=== PATIENT | female | born 1945 | race Caucasian/White ===

== ENCOUNTER 2020-04-12 05:51 | Day surgery (SDC) | payer MEDICARE ==
[2020-04-11 13:31] LABS: BASOPHILS # (AUTO) 0.1 X10'3 (0-0.2); BASOPHILS % (AUTO) 0.9 % (0-1); EOSINOPHILS # (AUTO) 0.2 X10'3 (0-0.9); EOSINOPHILS % (AUTO) 2.2 % (0-6); HEMATOCRIT 41.6 % (35.0-45.0); HEMOGLOBIN 13.5 g/dl (12.0-16.0); LYMPHOCYTES # (AUTO) 1.4 X10'3 (1.1-4.8); MEAN CORPUSCULAR HEMOGLOBIN 28.2 PG (27.0-31.0); MEAN CORPUSCULAR HGB CONC 32.4 g/dL (33.0-36.5); MEAN PLATELET VOLUME 8.5 FL (7.4-10.4); MONOCYTES # (AUTO) 0.4 X10'3 (0-0.9); MONOCYTES % (AUTO) 4.2 % (2-12); NEUTROPHILS # (AUTO) 6.7 X10'3 (1.8-7.7); NEUTROPHILS % (AUTO) 76.7 % (42-75); PLATELET COUNT 301 X10'3 (140-440); RED BLOOD COUNT 4.78 X10'6 (4.20-5.60); RED CELL DISTRIBUTION WIDTH 14.9 % (11.5-14.5); WHITE BLOOD COUNT 8.8 X10'3 (4.5-11.0)
[2020-04-11 13:42] LABS: PARTIAL THROMBOPLASTIN TIME 31 SECONDS (22-32)
[2020-04-11 13:46] LABS: ALBUMIN 3.6 G/DL (3.4-5.0); ANION GAP 6 (8-16); BLOOD UREA NITROGEN 24 MG/DL (7-18); CALCIUM 9.4 MG/DL (8.5-10.1); CHLORIDE 106 MMOL/L (99-107); CREATININE 0.96 MG/DL (0.40-0.90); GLUCOSE 121 MG/DL (70-104); POTASSIUM 4.4 MMOL/L (3.5-5.1); SODIUM 143 MMOL/L (135-145); TOTAL CARBON DIOXIDE 30.8 MMOL/L (24-32); eGFR 57 ML/MIN
[~2020-04-12] VITALS: Ht 170.2 cm; Wt 163.7 kg
[2020-04-12] VITALS (11 sets, daily range): BP systolic 124–170; BP diastolic 53–97
[2020-04-12] MEDS ORDERED: normal saline 1,000 ML IV SCH ×2 (06:20→10:00)
[2020-04-12] MEDS ORDERED: LORazepam 0.5 MG tablet PO PRN (06:20)
[2020-04-12] MEDS ORDERED: LIDOcaine/PRILOcaine 5gm cream TP ONE (06:20)
[2020-04-12] MEDS ORDERED: diphenhydrAMINE 25mg capsule PO PRN (06:20)
[2020-04-12] MEDS ORDERED: CHOL20002 PO (06:49)
[2020-04-12] MEDS ORDERED: UBID300C PO (06:49)
[2020-04-12] MEDS ORDERED: CARV6.253 PO (06:49)
[2020-04-12] MEDS ORDERED: LISI40TA4 PO (06:49)
[2020-04-12] MEDS ORDERED: CALC-801 PO (06:49)
[2020-04-12] MEDS ORDERED: POTA99TA21 PEG (06:49)
[2020-04-12] MEDS ORDERED: SIMV10TA98 PO (06:49)
[2020-04-12] MEDS ORDERED: CRAN200C PO (06:49)
[2020-04-12] MEDS ORDERED: AMLO10TA13 PO (06:49)
[2020-04-12] MEDS ORDERED: MULT-1085 PO (06:49)
[2020-04-12] MEDS ORDERED: BETA1TAB20 PO (06:49)
[2020-04-12] MEDS ORDERED: verapamil 2.5 mg/ml inj IV ONE (07:31)
[2020-04-12] MEDS ORDERED: nitroGLYCERIN-Tridil 50MG/D5W 250 ML IV ONE (07:31)
[2020-04-12] MEDS ORDERED: fentaNYL/PF 50MCG/1 ML 2ML syringe ONE (07:32)
[2020-04-12] MEDS ORDERED: LIDOcaine 1% (10mg/ml)w/preservative injection 20ml MDV ONE (07:32)
[2020-04-12] MEDS ORDERED: iohexol 350MG/ML 100ml bottle IV ONE (07:32)
[2020-04-12] MEDS ORDERED: heparin 1,000unit/ml 10ml vial 10 ML ONE (07:32)
[2020-04-12] MEDS ORDERED: iohexol 350 MG/ML 50ML vial IV ONE (07:32)
[2020-04-12] MEDS ORDERED: midazolam 2 mg/2 ml injection ONE (07:32)
[2020-04-12] MEDS ORDERED: FLU VACC QS2020-21(6MOS UP)/PF 60 MCG/0.5 ML SYRINGE IMVAC ONE (10:00)
== END 2020-04-12 15:00 | disposition home or self-care (01) ==
LOC: SSTAY O 05:51
PROVIDERS: ATTEND Internal Medicine Cardiovascular Disease
DX: R94.39 Abnormal result of other cardiovascular function study (principal); I25.10 Atherosclerotic heart disease of native coronary artery without angina pectoris; I10 Essential (primary) hypertension; E78.5 Hyperlipidemia, unspecified; E66.01 Morbid (severe) obesity due to excess calories; Z68.43 Body mass index [BMI] 50.0-59.9, adult; G47.30 Sleep apnea, unspecified; E88.81 Metabolic syndrome and other insulin resistance; K21.9 Gastro-esophageal reflux disease without esophagitis; M16.0 Bilateral primary osteoarthritis of hip; Z98.890 Other specified postprocedural states; Z79.899 Other long term (current) drug therapy; Z79.01 Long term (current) use of anticoagulants; Z80.9 Family history of malignant neoplasm, unspecified; Z83.3 Family history of diabetes mellitus; Z82.49 Family history of ischemic heart disease and other diseases of the circulatory system
CPT/HCPCS: 36415; 80048; 85025; 85610; 85730; 93005; 93460; 99152; 99153; C1769; C1894; J1644; J2001; J2250; J3010; J7030; Q0163; Q9967; A4620; A5120; A6258; C1751; J3490